=== PATIENT | female | born 2000 | race Two or more races ===

== ENCOUNTER 2025-04-15 19:56 | Emergency (ER) | payer OTHER, SELFPAY ==
[~2025-04-15] VITALS: Ht 157.5 cm; Wt 59.2 kg
[2025-04-15] MEDS ORDERED: AUG875T PO (20:40)
[2025-04-15] MEDS ORDERED: PRED20TA2 PO (20:40)
--- NOTE | 2025-04-15 20:40 | ED.PDOC ---
Eye-HPI HPI Comments SO 24-YEAR-OLD FEMALE PRESENTS TO ED CHIEF COMPLAINT SORE THROAT. PATIENT IS SEEN SYMPTOMS X2 DAYS SHE NOTES DIFFICULTY SWALLOWING THROAT SWELLING AND TONSILS BEING ENLARGED. SHE REPORTS LOW-GRADE FEVERS NOT MEASURED CHILLS DENIES DIFFICULTY BREATHING CHEST PAIN, OR SHORTNESS A BREATH. Time Seen by MD: 20:21 Reviewed Notes: Nurses Notes, Medications, Allergies Home Meds Active Scripts Prednisone (Prednisone) 20 Mg Tab, 20 MG PO DAILY@BREAKFAST for 5 Days, #5 TAB Prov:ANA WAN POSTAL SUPERVISOR 04/15/25 Amoxicillin & Pot Clavulanate (AUGMENTIN TABLET) 875 Mg Tb, 875 MG PO BID for 7 Days, #14 TAB Prov:ANA WAN POSTAL SUPERVISOR 04/15/25 Information Source: Patient Past Medical History PAST MEDICAL HISTORY: Denies Surgical History: Denies all surgeries PATROL CONDUCTOR History: No Pertinent PATROL CONDUCTOR History Family History Family History: Reviewed,noncontributory to illness, No family hx of Cancer, No family hx of DM, No family hx of Heart mark, No family hx of HTN, No family hx ofKidney mark, No family hx of Liver mark, No family hx of Lung mark, No family hx of Stroke Social History Smoker: Non-Smoker Alcohol: Denies ETOH Use Drugs: Denies Drug Use Constitutional: reports: fever; denies: chills, diaphoresis, fatigue, malaise, sweats, weakness, others EENTM: reports: throat pain, throat swelling; denies: blurred vision, double vision, ear bleeding, ear discharge, ear drainage, ear pain, ear ringing, eye pain, eye redness, hearing loss, mouth pain, mouth swelling, nasal discharge, nose bleeding, nose congestion, nose pain, photophobia, tearing, voice changes, others Respiratory: denies: cough, hemoptysis, orthopnea, SOB at rest, shortness of breath, SOB with excertion, stridor, wheezing, others Cardiovascular: denies: chest pain, dizzy spells, diaphoresis, Dyspnea on exertion, edema, irregular heart beat, left arm pain, lightheadedness, palpitations, PND, syncope, others Gastrointestinal: denies: abdomen distended, abdominal pain, blood streaked bowels, constipated, diarrhea, dysphagia, difficulty swallowing, hematemesis, melena, nausea, poor appetite, poor fluid intake, rectal bleeding, rectal pain, vomiting, others Genitourinary: denies: abnormal vagina bleeding, burning, dyspareunia, dysuria, flank pain, frequency, hematuria, incontinence, pain, , vagina discha rge, urgency, others Neurological: denies: dizziness, fainting, headache, left sided numbness, left sided weakness, numbness, paresthesia, pre-existing deficit, right sided numbness, right sided weakness, seizure, speech problems, tingling, tremors, weakness, others Musculoskeletal: denies: back pain, gout, joint pain, joint swelling, muscle pain, muscle stiffness, neck pain, others Integumetry: denies: bruises, change in color, change in hair/nails, dryness, laceration, lesions, lumps, rash, wounds, others Allergic/Immunocompromised: denies: Difficulty Healing, Frequent Infections, Hives, Itching, others Hematologic/Lymphatic: denies: anemia, blood clots, easy bleeding, easy bruising, swollen glands, others Endocrine: denies: excessive hunger, excessive sweating, excessive thirst, excessive urination, flushing, intolerance to cold, intolerance to heat, unexplained weight gain, unexplained weight loss, others Psychiatric: denies: anxiety, bipolar disorder, depression, hopeless, panic disorder, schizophrenia, sleepless, suicidal, others Physical Exam General Appearance: No Apparent Distress, Normal HEENT: Pharyngeal Erythema, TMs Normal, Tonsillar Exudate (TONSILS GRADE 4 WITH PURULENT WHITE EXUDATE) Neck: Full Range of Motion, Non-Tender Respiratory: Lungs Clear, No Respiratory Distress, Normal Breath Sounds Cardiovascular: No Edema, No JVD, No Murmur, No Gallop, Normal Peripheral Pulses, Regular Rate/Rhythm Breast Exam: Deferred Gastrointestinal: No Organomegaly, Non Tender, No Pulsatile Mass, Normal Bowel Sounds, Soft Genitalia: Deferred Pelvic: Deferred Rectal: Deferred Extremities: Normal capillary refill, Normal inspection, Normal range of motion, Non-tender, No pedal edema Musculoskeletal : Apperance: Normal Neurologic: Alert, No Motor Deficits, Normal Affect, Normal Mood, No Sensory Deficits Cerebellar Function: Normal Reflexes: Normal Skin: Dry, Normal Color, Warm Lymphatic: No Adenopathy Was a procedure done? Was a procedure done?: No EENT DIFF Eye: N/A Sore Throat: Epiglottitis, Jack's Angina, Peritonsillar Abscess, Peritonsillar Cellulitis, Pharyngitis, Streptococcal, Viral Pharyngitis X-Ray, Labs, Meds, VS Comment LIKELY BACTERIAL PATIENT GIVEN DECADRON FOR THE PAIN AND SWELLING. PATIENT TOLERATED WELL WE QUESTIONS DISCHARGED AT THIS TIME. SCRIPT TRIAL OF AUGMENTIN AND PREDNISONE. ADVISED TO REST INCREASE P.O. FLUIDS WITH ELECTROLYTES [id number] TYLENOL AND MOTRIN NEEDED FOR THE FEVER PER LABEL DOSING INSTRUCTIONS. FOLLOW UP YOUR PCP IN 2-3 DAYS NECESSARY. ER RETURN PRECAUTIONS GIVEN PATIENT'S GETS UNDERSTAND AGREES WITH DISCHARGE PLAN OF CARE. Time of 1ST Reevaluation: 20:43 Reevaluation 1ST: Unchanged Time of 2ND Reevaluation: 20:43 Reevaluation 2ND: Improved Patient Education/Counseling: Diagnosis, Treatment, Prognosis, Need For Follow Up Family Education/Counseling: No Family Present Departure 1 Departure Time of Disposition: 20:38 Impression: Primary Impression: Acute tonsillitis Qualified Codes: J03.90 - Acute tonsillitis, unspecified Disposition: 01 HOME / SELF CARE / HOMELESS Condition: Stable e-Prescriptions Prednisone (Prednisone) 20 Mg Tab 20 MG PO DAILY@BREAKFAST for 5 Days, #5 TAB Prov: ANA WAN 04/15/25 Amoxicillin & Pot Clavulanate (AUGMENTIN TABLET) 875 Mg Tb 875 MG PO BID for 7 Days, #14 TAB Prov: ANA WAN 04/15/25 Discharged With: Self Critical Care Note Critical Care Time?: No Stability Stability form required: No ANA WAN Apr 15, 2025 20:40
[2025-04-15 21:20] VITALS: BP 117/69; PULSE 93; RESP 18; TEMP 98.5; O2SAT 97
[2025-04-15] MEDS: DexAMETHasone SOD PHOS 10MG/1ML VIAL INJ IM ONE (21:24)
== END 2025-04-15 21:34 | disposition home or self-care (01) ==
LOC: ER 19:56
DX: J03.90 Acute tonsillitis, unspecified (principal); R13.10 Dysphagia, unspecified
CPT/HCPCS: 96372; 99283; J1100